=== PATIENT | male | born 1995 | race Asian ===

== ENCOUNTER 2016-12-17 16:40 | Emergency (ER) | payer OTHER ==
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
== END 2016-12-17 17:38 | disposition home or self-care (01) ==
LOC: CFTX 16:40
DX: S00.83XA Contusion of other part of head, initial encounter (principal); S00.81XA Abrasion of other part of head, initial encounter; V49.00XA Driver injured in collision with unspecified motor vehicles in nontraffic accident, initial encounter; Z23 Encounter for immunization
CPT/HCPCS: 70486; 90471; 90715; 99284